=== PATIENT | male | born 1960 | race Caucasian/White ===

== ENCOUNTER 2024-12-25 08:19 | Emergency (ER) | payer OTHER ==
[~2024-12-25] VITALS: Ht 175.3 cm; Wt 136.4 kg
[2024-12-25] MEDS ORDERED: morphine 4 MG/ML inj SYRINge IV ONE (08:35)
--- NOTE | 2024-12-25 08:37 | ELECTROCARDIOGRAPH REPORT ---
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
[2024-12-25] MEDS: ondansetron/PF 4mg/2ml inj IV ONE (08:47)
[2024-12-25] MEDS: morphine 4 MG/ML inj SYRINge IV ONE (08:48)
[2024-12-25 08:49] LABS: MEAN PLATELET VOLUME 8.9 FL (7.4-10.4); RED CELL DISTRIBUTION WIDTH 14.2 % (11.5-14.5)
[2024-12-25 08:59] LABS: CREATININE 1.08 MG/DL (0.60-1.10); TOTAL CARBON DIOXIDE 29.5 MMOL/L (24-32); eCRCL 69 ML/MIN; eGFR 69 ML/MIN
[2024-12-25 09:02] VITALS: TEMP 98.1
[2024-12-25] MEDS ORDERED: NO HOME MEDS (09:02)
--- NOTE | 2024-12-25 09:11 | Physician Documentation ---
History of Present Illness Chief Complaint: Abdominal Pain Stated Complaint: GALL BLADDER PAIN Time Seen by MD: 08:31 HPI 64-year-old male presenting with abdominal pain He tells me that his pain started during the night, couple hours after eating dinner. He states the pain is severe, constant, and located in the upper central abdomen. It does radiate through to his back. On arrival he is in distress and moaning in pain. Denies any vomiting or diarrhea. He denies any history of abdominal surgeries. History is somewhat limited due to his distress Medication Reconciliation Allergies: Coded Allergies: No Known Allergies (Unverified , 12/25/24) Scheduled Lisinopril (Lisinopril), 1 TAB PO DAILY Miscellaneous Medications Home Med List (No Home Medications), (Reported) Review of Systems Constitutional: Denies: fever Gastrointestinal: Reports: abdominal pain, nausea; Denies: vomiting, diarrhea Physical Exam Vital Signs: Temperature: 98.1, Source: Oral, Heart Rate: 80, Respiratory Rate: 22, BP: 202/109, Pulse Oximetry: 95, Weight: 136.360 Oxygen Flow Rate: 0 Physical Exam General:This is a middle-aged man, moaning and holding his abdomen, appears very uncomfortable HEENT: Atraumatic, oropharynx appears dry Heart: Mild tachycardic, appears regular, normal perfusion including normal pulses to all 4 extremities. He is significantly hypertensive Lungs: Diminished breath sounds bilateral, normal work of breathing, normal oxygen saturation on room air Abdomen: Soft, mildly distended abdomen. He does have significant tenderness to palpation in the epigastric region only, otherwise nontender, no rebound or guarding Extremities: Warm and well-perfused Neuro: Alert and oriented Psychiatric: Appears anxious and in distress Progress Results/Orders Results/Orders Orders - GAGAN CARBONE MD Cta Chest Abdomen Pelvis (12/25/24 08:33) LA (12/25/24 09:05) Completed Orders - GAGAN CARBONE MD Cbc/Diff (12/25/24 08:32) CMP (12/25/24 08:32) Lipase (12/25/24 08:32) Electrocardiogram (12/25/24 08:32) Ondansetron Inj. (Zofran 4mg/2ml Vial) (12/25/24 08:35) Hs Troponin I W Calculations (12/25/24 08:33) Morphine 4mg/Ml Inj. (Morphine Inj.) (12/25/24 08:45) Medications Received in ER Medications (Trade) Dose Ordered Sig/Tino Route PRN Reason Start Time Stop Time Status Last Admin Dose Admin (Zofran 4mg/2ml vial) 4 mg ONCE ONCE IV 12/25/24 08:35 12/25/24 08:36 DC 12/25/24 08:47 4 MG (morphine inj.) 8 mg ONCE ONCE IV 12/25/24 08:45 12/25/24 08:46 DC 12/25/24 08:48 8 MG Vital Signs 12/25/24 12/25/24 12/25/24 12/25/24 08:22 08:48 08:56 09:02 Temp 97.8 98.1 Pulse 81 80 Resp 18 23 20 22 B/P (MAP) 202/101 202/109 (140) Pulse Ox 96 95 O2 Flow Rate 0 Laboratory Tests Test 12/25/24 08:30 White Blood Count 18.4 H Red Blood Count 5.65 Hemoglobin 16.5 Hematocrit 49.9 Mean Corpuscular Volume 88.3 Mean Corpuscular Hemoglobin 29.3 Mean Corpuscular Hemoglobin Concent 33.1 Red Cell Distribution Width 14.2 Platelet Count 419 Mean Platelet Volume 8.9 Neutrophils (%) (Auto) 85.6 H Lymphocytes (%) (Auto) 7.8 L Monocytes (%) (Auto) 5.9 Eosinophils (%) (Auto) 0.2 Basophils (%) (Auto) 0.5 Neutrophils # (Auto) 15.7 H Lymphocytes # (Auto) 1.4 Monocytes # (Auto) 1.1 H Eosinophils # (Auto) 0.0 Basophils # (Auto) 0.1 CBC Comment Sodium Level 139 Potassium Level 3.4 L Chloride Level 101 Carbon Dioxide Level 29.5 Anion Gap 9 Blood Urea Nitrogen 16 Creatinine 1.08 Estimated GFR/1.73 m2 69 BUN/Creatinine Ratio 14.8 Glucose Level 115 H Calcium Level 8.4 L Total Bilirubin 0.5 Aspartate Amino Transf (AST/SGOT) 25 Alanine Aminotransferase (ALT/SGPT) 18 Alkaline Phosphatase 100 Troponin I High Sensitivity 21 Total Protein 7.8 Albumin 3.5 Globulin 4.3 Albumin/Globulin Ratio 0.8 L Lipase 40 Chemistry Comments EKG/XRAY/CT/US/VASC/MRI EKG : Additional Comment I personally interpreted the EKG and this shows: Sinus rhythm, rate 77, QTC 466, inverted T-waves in the lateral leads, no STEMI CT : Impression I personally interpreted the CT scan, and this shows a distended gallbladder with possible surrounding inflammatory changes, normal appearing aorta Ultrasound : Impression Ultrasound shows gallstones but no cholecystitis Medical Decision Making Additional information obtaine: N/A Findings Not applicable Differential Dx:Considerations: AAA, Angina/NC, Aortic dissection, Appendicitis, Bowel obstruction, Cholelithasis, Constipation, Diverticular disease, Esophagitis, Hernia, Ischemic bowel, Urolithiasis Additional Comments The patient presents with severe upper abdominal pain. On exam he is in distress and has focal tenderness in the upper abdomen. Labs show a leukocytosis, otherwise unremarkable. EKG without significant ischemic changes and troponin is normal. He was given pain and nausea medication. A CTA was obtained which shows no aortic pathology or other acute process in the abdomen. Right upper quadrant ultrasound shows gallstones. On re-evaluation the kedar ent's pain has resolved. Overall I suspect this was an episode of biliary colic. He will be discharged with home care instructions and referral to the surgery clinic if he has ongoing symptoms. Return precautions given. He also was found to have significant hypertension. He likely has chronic hypertension. He will be started on blood pressure medication. He will arrange a primary care clinic follow up. Departure Time of Disposition: 12:02 Disposition: 01 HOME / SELF CARE / HOMELESS Impression: Primary Impression: Biliary colic Additional Impression: Hypertension Condition: Improved Discharge Instructions: Cholelithiasis Referrals: NO PRIMARY CARE PROVIDER (PCP) JENSEN SOLOMON MD Prescriptions Lisinopril (Lisinopril) 20 Mg Tablet 1 TAB PO DAILY for 30 Days, #30 TAB 2 Refills Prov: GAGAN CARBONE MD 12/25/24 Education Educated: Patient Educated regarding: diagnosis, treatment, need for follow up Signature Scribe Signature: alisson Attestation: GAGAN Richardson MD Dec 25, 2024 09:11
--- NOTE | 2024-12-25 10:05 | RADIOLOGY REPORT ---
CTA Chest, abdomen, and pelvis with intravenous contrast INDICATION: severe epigastric pain, radiates to back COMPARISON: None TECHNIQUE: Multidetector spiral CTA of the chest, abdomen, and pelvis was performed with intravenous contrast. Axial, coronal and sagittal multiplanar and MIP reformats were performed. Radiation Dose : 1. Chest: CTDI volume is 26.09 mGy. Dose-length product is 1918.78 mGy*cm The dose indicators for CT are the volume Computed Tomography (CT) Dose Index (CTDIvol) and the Dose Length Product (DLP), and are measured in units of mGy and mGy-cm, respectively. These indicators are not patient dose, but values generated from the CT scanner acquisition factors. The report includes radiation exposure data for exposures received during this examination. Contrast: 100 cc Omnipaque 350. Findings: Aorta: No aneurysm, dissection, or significant stenosis. Relatively mild generalized atherosclerotic plaque. Pulmonary artery: No central, lobar, or segmental pulmonary embolus. Peripheral vessels poorly opacified and not well assessed. Lower neck: Normal thyroid. Lungs: No focal consolidation, pleural effusion or pneumothorax. Heart/Vascular Structures: Normal heart size. No pericardial effusion. Lymph Nodes: Mildly enlarged intrathoracic lymph nodes. For example, right lower paratracheal lymph node measuring 1.7 cm. Right hilar lymph node measuring 1.2 cm. Pleura: No pleural effusion or significant pneumothorax. Liver: Mild hyperemia surrounding the gallbladder. Gallbladder: Mildly distended. No overt wall thickening or significant surrounding inflammatory changes. Spleen: Unremarkable. Pancreas: Unremarkable. Adrenals: Unremarkable. Kidneys: Few small bilateral renal cortical cysts. Lymph nodes: No lymphadenopathy. GI tract: Few scattered colonic diverticula. Otherwise unremarkable. Musculoskeletal: No acute osseous abnormality. Soft tissues: Normal. Upper abdomen: Limited portions of the upper abdomen are unremarkable. IMPRESSION: No acute aortic pathology or significant pulmonary embolus. Mild hyperemia within the liver surrounding the gallbladder. Please correlate with any clinical symptoms of acute cholecystitis.
--- NOTE | 2024-12-25 11:12 | RADIOLOGY REPORT ---
INDICATION: epigastric pain, enlarged GB on CT TECHNIQUE: Multiple real-time sonographic images of the right upper abdomen were obtained. COMPARISON: None FINDINGS: Evaluation is limited to obscuration from bowel gas. The liver is increased in echogenicity. The liver measures 21 cm. No intrahepatic biliary ductal dilatation is noted. The gallbladder wall measures 0.3 cm and is unremarkable. Gallbladder sludge and gallstones. The common duct measures 0.3 cm and is unremarkable. No pericholecystic fluid is noted. The right kidney measures 11.9 cm. No hydronephrosis. The pancreas is not well visualized due to obscuration from bowel gas. The visualized portions of the IVC and aorta are grossly unremarkable. IMPRESSION: Gallbladder sludge and gallstones. Hepatic steatosis and hepatomegaly.
[2024-12-25] MEDS ORDERED: LISI20TA28 PO (12:03)
[2024-12-25 13:04] VITALS: BP 177/89; PULSE 87; RESP 16; O2SAT 97
== END 2024-12-25 13:06 | disposition home or self-care (01) ==
LOC: ER 08:20
DX: K80.70 Calculus of gallbladder and bile duct without cholecystitis without obstruction (principal); I10 Essential (primary) hypertension; I25.2 Old myocardial infarction; Z79.899 Other long term (current) drug therapy
CPT/HCPCS: 36415; 71275; 74174; 76700; 80053; 83605; 83690; 84484; 85025; 93005; 96374; 96375; 99285; J2270; J2405; Q9967; A4615